=== PATIENT | female | born 1970 | race Caucasian/White ===

== ENCOUNTER 2018-10-11 15:00 | Outpatient (RCR) | payer OTHER, SELFPAY ==
--- NOTE | 2018-08-20 17:58 | HP.PTEVAL ---
Patient's Visit Information CLAUDE PAK is a 48 year old F referred to Physical Therapy by HARVINDER GOTTLIEB with a diagnosis of R hip piriformis syndrome. Date of Evaluation: 08/20/18 Physical Therapist: Valentin Nova PT, - Visit Plan Frequency: 2x /Week Duration: 2-4 Weeks Plan: R LE stretching and strengthening, DTR, foam roller, strengthening, and HEP - Subjective Subjective: Pt reports she has had R gluteal pain since june of 2018. Pt notes she has pain in the right gluteal region, and in her R foot. Pt denies LBP at this time. Pt reports sitting, walking up hills, and squatting all increase her pain. Pt reports she is very active performing in running activity, as well as crossfit. Pt is unable to perform that activity now and would like to get back to them. Pt reports she has been getting adjusted by her chiropractor to help relieve her pain. Pain does awaken her at night time. 6/10 pain at rest, 9/10 at worst. - Pain R glute Pain Intensity (Out of 10): 6 Pain Intensity Range: 9 - Objective Neuro: B LE sensation is WNL to light touch. B patellar tendon reflex= 2/3. Palpation: Pt is very sore in the R gluteal region. ROM: B LE's are WFL. MMT: R hip flex and ER are 4-/5 and very painful with testing. All other 5/5 throughout. special tests: pos piriformis test - Goals Goal 1:: Decrease R hip pain x 50% to aid with sleep Goal Time Frame: 2-4 Weeks Goal 2:: Increase R hip flexibility x 1 grade to aid with decreasing pain Goal Time Frame: 2-4 Weeks Goal 3:: I with HEP Goal Time Frame: 2-4 Weeks - Rehabilitation Potential Physical Therapy Diagnosis: R hip pain, weakness, and limited ability to run secondary to R hip piriformis syndrome Rehabilitation Potential: Good - Anticipated Interventions Patient/Client Instruction: Educate patient on: Condition, Plan of Care For the Purpose of:: To improve self management Therapeutic Exercise to Include: Strength training, Endurance training, Flexibilty training, Dynamic Lumbar Stabilization For the Purpose of:: To decrease pain, To increase ROM, To improve muscle performance and motor function Thank you for the opportunity to evaluate your patient. For Medicare and Medicare HMO plans, please review the plan of care and approve it. It will need to be FAXED BACK to us at [phone] for Medicare purposes. Please let me know if there are questions or concerns regarding this plan of care. Physician Signature: Date:
--- NOTE | 2018-10-11 15:43 | HP.PTDCSUM ---
HP - PT D/C Summary It has been my pleasure to treat CLAUDE PAK under orders from HARVINDER GOTTLIEB, for the diagnosis of R hip piriformis syndrome for a total of 6 visit(s). Discharge Date: Please see the following information for a summary of their discharge status. - Subjective Subjective: No pain this date. Pt reports she is now able to run a mile and is fine - Pain R glute Pain Intensity (Out of 10): 0 - Objective Objective/Function: 0/10 pain this date. R LE flexibility is now WNL throughout. Pt is I with HEP. Rx goals achieved - Goals Goal 1:: Decrease R hip pain x 50% to aid with sleep Goal Progress: Goal Met Goal 2:: Increase R hip flexibility x 1 grade to aid with decreasing pain Goal Progress: Goal Met Goal 3:: I with HEP Goal Progress: Goal Met - Plan Plan: Discharge - D/C Information If there are questions or concerns regarding this patient's physical therapy, please feel free to call me at [phone]. Thank you for the referral of this patient. Sincerely, Valentin Nova, PT, ATC
== END 2018-10-11 19:00 | disposition home or self-care (01) ==
LOC: PT 15:00
DX: M99.01 Segmental and somatic dysfunction of cervical region (principal); M54.2 Cervicalgia; M99.03 Segmental and somatic dysfunction of lumbar region; M99.02 Segmental and somatic dysfunction of thoracic region; M54.5 Low back pain; M54.06 Panniculitis affecting regions of neck and back, lumbar region; M99.05 Segmental and somatic dysfunction of pelvic region; G44.1 Vascular headache, not elsewhere classified
CPT/HCPCS: 97110; 97161; 97530

== ENCOUNTER → 2018-10-18 10:42 | Outpatient (CLI) | payer OTHER, SELFPAY ==
[2017-08-11 14:52] VITALS: BMI 22.3
[2018-10-24 16:44] LABS: HPV Reflexed? NOT INDICATED
--- OUTSIDE RECORDS SUMMARY | 2018-12-23 19:28 | XMS RPT_ITS ---
:1970 Author Organization [facility] Care Team Providers Name Role Phone RICHA DONG (ULTRASOUND APPLICATIONS SPECIALIST) Referring Unavailable Jason Ley Attending Unavailable Jason [...] Unknown M99.01 - DENISSE MAGALLANES Active Sam[facility] dysfunction of Repository cervical region / M99.01(ICD-10) 12/27/2017 Active Unspecified NA Active [facility] ovarian cyst, [facility] left side / Repository N83.202(ICD-10) PROCEDURES PROCEDURES No Procedure Records FoundRESULTS RESULTS CBC W/DIFF, AUTOMATED Collected: 10/18/2018 Status: F Source: [place] 4:03 PM [facility] REPOSITORY TYPE CODE TESTS RESULT OUT OF [...] By: #### L100.0100, L500.4050, L500.4100, L501.9520 #### [facility] [address] [place], [address] COMPREHENSIVE METABOLIC Collected: 10/18/2018 Status: F Source: [facility] 4:03 PM [facility] REPOSITORY TYPE CODE TESTS RESULT OUT OF [...] By: #### L100.0100, L500.4050, L500.4100, L501.9520 #### [facility] [address] [place], [place], [address] LIPID PROFILE Collected: 10/18/2018 Status: F Source: [facility] 4:03 PM [facility] REPOSITORY TYPE CODE TESTS RESULT OUT OF [...] By: #### L100.0100, L500.4050, L500.4100, L501.9520 #### [facility] [address] [place], [place], [address] THYROID STIM HORMONE Collected: 10/18/2018 Status: F Source: [facility] (TSH) 4:03 PM [facility] REPOSITORY TYPE CODE TESTS RESULT OUT OF RANGE REFERENCE UNITS LAB L501.9520 0.358-3.74 uIU/mL Normal TSH 3.03 Performed By: #### L100.0100, L500.4050, L500.4100, L501.9520 #### [facility] [address] [place], [address] PAP I-G W/RFX HRHPV Collected: 10/18/2018 Status: F Source: [facility] 12:00 AM [facility] REPOSITORY Order Comment: CYTOLOGY INFORMATION: - CLINICAL INFORMATION: - DATE LMP/MENOPAUSE: LMP - COLLECTION VIAL: Thin Prep Vial - COATER HAND SOURCE: CERVICAL/ENDOCERVICAL - COLLECTION TECHNIQUE: BRUSH/SPATULA Specimen Comment: [id number] Specimen Comment: Source.............Cervix;Endocervix Specimen Comment: No. of [...] Normal PERFORM Comment Result Comment: Ja Caputo, Pearl Glue Drier (ASCP) LAB L7400.2575 . Normal TEST METHOD [...] no HPV testing was performed. Performed at: [address] [id number] Vacuum Cooker Operator: Aileen Saeed MD, Phone: [phone] Performed By: #### L7400.0350 #### [facility] (refer to report for specific site) refer to report for address and phone number PT D/C SUMMARY (1) Observed: 10/11/2018 Status: F Source: [place] 3:44 PM [facility] REPOSITORY [facility] [place] [address] / REHABILITATION SERVICES DISCHARGE SUMMARY MR#: [id number] Acct: [id number] Name: CLAUDE PAK Rep #: [id number] : 1970 48 From: Valentin Nova PT, ATC Referring DrJohanna: Status: REG RCR Insurance: [facility] PAY INSURANCE [place] - PT D/C Summary [...] please feel free to call me at [phone]. Thank you for the referral of this patient. Sincerely, Valentin Nova PT, ATC <Electronically signed by Valentin Nova PT, ATC> 10/11/18 1544 CC: No Primary Care Physician; PATO GOTTLIEB [facility] Signed INITAL EVALUATION (1) Observed: 08/20/2018 Status: F Source: [facility] - PT 5:58 PM [facility] REPOSITORY [facility] [address] [place] [address] [address] [place], [place] [address] Fax REHABILITATION SERVICES INITIAL EVALUATION MR#: [id number] Acct: [id number] Name: CLAUDE PAK Rep #: [id number] : 1970 48 From: Valentin Nova PT, ATC Referring DrJohanna: Status: REG RCR Insurance: [facility] PAY INSURANCE Patient's Visit Information CLAUDE PAK [...] to be FAXED BACK to us at [phone] for Medicare purposes. Please let me know if there are questions or concerns regarding this plan of care. Physician Signature: Date: <Electronically signed by Valentin Nova PT, ATC> 08/20/18 1758 CC: No Primary Care Physician; PATO GOTTLIEB [facility] Signed For Medicare only, by signing this I certify the plan of care. Physicians Signature Date US FEMALE PELVIS Observed: 12/27/2017 Status: F Source: [place] 10:38 AM [facility] REPOSITORY * * *Final Report* * * [...] noted complex cyst. Continued follow-up is suggested. Skelp Processor: NAVA Transcribe Date/Time: Dec 27 2017 2:20P Dictated by : MEHREEN GAMBINO MD This examination was interpreted and the report reviewed and electronically signed by: MEHREEN GAMBINO MD on Dec 27 2017 2:28PM EST [id number] Observed: 12/27/2017 Status: COMPLETED Source: [place] 10:01 AM [facility] REPOSITORY HNO ID: [id number] Author: Sierra Sharma Rdms Service: (none) Author [...] SEVERITY SOURCE 08/11/2017 Drug No Known Unknown [facility] Allergy/416 Allergies/J75013 Hospital 108940(SNOM 0388(RXNORM) Repository ED CT) Drug NO KNOWN [facility] Class/23733 ALLERGIES [facility] 1003(SNOMED Repository CT) ENCOUNTERS ENCOUNTERS ADMIT/DISCHARGE ACCOUNT ADMITTING ENCOUNTER LOCATION SOURCE NUMBER CLASS 10/18/2018 [id number] [facility] ing:MFPLAB Repository 10/18/2018 [id number] [facility] ing:LABSPEC Repository 10/11/2018/10/11/[id number] ing:PT Repository 12/27/2017/12/28/19 [id number] Ambulatory [address] Repository 11/07/2017 [id number] Ambulatory [facility]i [facility] ing:RAD.MARIA DEL CARMEN Repository E PAYERS PAYERS ENCOUNTER GUARANTOR PAYER SUBSCRIBER SOURCE 10/18/2018 PATO [id number] Primary PATO DANILOONUNK [place] Insurance:[address] [address]Ydo: Number: Repository [id number] (HP) Date:[id number] [address] [address]TY: 10/18/2018 Secondary NOT GIVENUNK Sami Insurance:SELF PAY [facility] Number: Effective Repository Date:2018-10-18 10/18/2018 PATO [id number] Primary PATO DANILOONUNK [facility] TR Insurance:[address] [place] [address]Jro: Number: Repository [id number] (HP) Date:[id number] [address] [address]YE: 10/18/2018 Secondary NOT GIVENUNK [place] Insurance:SELF PAY [facility] Number: Effective Repository Date:2018-10-18 10/11/2018 PATO [id number] Primary PATO DANILOONSHYANN [facility]i TR Insurance:[address] [place] [address]Cuy: Number: Repository [id number] (HP) Date:[id number] [address] [address]GA: 10/11/2018 Secondary NOT GIVENUNK [place] Insurance:SELF PAY [facility] Number: Effective Repository Date:2018-08-10 11/07/2017 Pato [id number] Primary Pato LemonUNK [address] Insurance:[address] [place] [address]Ftx: Number: Repository [id number] (HP) Date:[id number] [address] [address]EL: 11/07/2017 Secondary NOT GIVENUNK [place] Insurance:SELF PAY [facility]: Effective Repository Date:2017-11-07
== END ==
PROVIDERS: Family Provider Family Medicine; PCP Family Medicine; Referring Provider Family Medicine; Visit Provider Family Medicine
DX: Z01.419 Encounter for gynecological examination (general) (routine) without abnormal findings (principal)
CPT/HCPCS: 88175; G0145

== ENCOUNTER → 2018-10-18 16:01 | Outpatient (CLI) | payer OTHER, SELFPAY ==
[2017-08-11 14:52] VITALS: BMI 22.3
[2018-10-18 17:54] LABS: Absolute Lymphocyte Count 2.41 X10^3/ul (0.83-4.51); Absolute Neutrophil Count 4.2 X10^3/uL (2.0-7.7); Basophil# 0.02 X10^3/uL; Basophil% 0.3 % (0-1); Eosinophil# 0.03 X10^3/uL; Eosinophils% 0.4 % (0-5); Hematocrit 39.6 % (37-47); Hemoglobin 13.2 g/dl (12.0-15.0); Lymphocyte # 2.41 X10^3/ul (4.0); Lymphocyte % 32.3 % (19-41); Mean Corp Hgb Conc 33.3 g/gl (32-36); Mean Corpuscular Hgb 31.4 pg (27.0-32.0); Mean Corpuscular Volume 94.1 fL (81-99); Mean Platelet Vol. 11.6 fl (6.2-12.0); Monocyte# 0.75 X10^3/uL; Monocyte% 10.1 % (0-10); Neutrophil # 4.22 X10^3/uL (2.7-7.7); Neutrophil % 56.6 % (47-70); Platelet Count 244 K/mm3 (150-450); RBC Distribution Width SD 43.5 fl (35.1-43.9); Red Blood Count 4.21 M/mm3 (4.2-5.4); White Blood Count 7.5 K/mm3 (4.4-11.0)
[2018-10-18 17:55] LABS: POSITIVE COUNT NO; POSITIVE DIFFERENTIAL NO; POSITIVE MORPHOLOGY NO
[2018-10-18 18:24] LABS: ALB/GLOB Ratio 1.1 RATIO (0.9-2.4); AST(SGOT) 23 U/L (15-37); Alanine Aminotransfer ALT/SGPT 35 U/L (13-56); Albumin, Serum 3.8 g/dL (3.2-5.0); Alkaline Phosphatase 67 U/L (45-117); Anion Gap 6 (5-15); BUN 17 mg/dL (7-18); BUN/Creat Ratio 24.4 RATIO (10-20); Calcium,Total 8.6 mg/dL (8.5-10.1); Chloride 106 mmol/L (98-107); Cholesterol 123 mg/dL (200); EST Glomerular Filtration Rate 96 mL/min (>60); Est Glom Filt Rate - Afr Amer 116 mL/min (>60); Globulin 3.4 g/dL (2.2-4.2); Glucose 79 mg/dL (74-106); High Density Lipoprotein 61 mg/dL; Potassium 3.7 mmol/L (3.5-5.1); Protein, Total 7.2 g/dL (6.4-8.2); Sodium Level 142 mmol/L (136-145); Thyroid Stim Hormone (TSH) 3.03 uIU/mL (0.358-3.74); Triglycerides 70 mg/dL; Very Low Density Lipoprotein 14 mg/dL (5-40)
--- OUTSIDE RECORDS SUMMARY | 2018-12-23 11:34 | XMS RPT_ITS ---
:1970 Author Organization [facility] Care Team Providers Name Role Phone RICHA DONG (BURNER MACHINE OPERATOR) Referring Unavailable Jason Ley Attending Unavailable Jason Ley Primary Care Unavailable Jason Ley Attending Unavailable Jason Ley Referring Unavailable Jason Ley Primary Care Unavailable Rivera Medel Attending Unavailable Primay Care Physicia, No Primary Care Unavailable DENISSE MAGALLANES Attending Unavailable Primay Care Physicia, No Primary Care Unavailable DENISSE MAGALLANES Consulting Unavailable DENISSE MAGALLANES Referring Unavailable PROBLEMS PROBLEMS DATE TYPE CONDITION / CODE ATTENDING STATUS SOURCE 10/12/2018 Unknown M99.01 - DENISSE MAGALLANES Active [facility] dysfunction of Repository cervical region / M99.01(ICD-10) 12/27/2017 Active Unspecified NA Active [facility] ovarian cyst, [facility] left side / Repository N83.202(ICD-10) PROCEDURES PROCEDURES No Procedure Records FoundRESULTS RESULTS CBC W/DIFF, AUTOMATED Collected: 10/18/2018 Status: F Source: [place] 4:03 PM [facility] REPOSITORY TYPE CODE TESTS RESULT OUT OF RANGE REFERENCE UNITS LAB L100.1000 4.4-11.0 K/mm3 Normal WBC 7.5 LAB L100.1200 4.2-5.4 M/mm3 Normal RBC 4.21 LAB L100.1300 12.0-15.0 g/dl Normal HGB 13.2 LAB L100.1400 37-47 % Normal HCT 39.6 LAB L100.1500 81-99 fL Normal MCV 94.1 LAB L100.1600 27.0-32.0 pg Normal MCH 31.4 LAB L100.1700 32-36 g/gl Normal MCHC 33.3 LAB L100.1810 11.6-14.6 % Normal RDW CV 13.0 LAB L100.1820 35.1-43.9 fl Normal RDW SD 43.5 LAB L100.1900 150-450 K/mm3 Normal PLT 244 LAB L100.2000 6.2-12.0 fl Normal MPV 11.6 LAB L100.2100 47-70 % Normal NEUT% 56.6 LAB L100.2200 19-41 % Normal LY% 32.3 LAB L100.2300 0-10 % High MONO% 10.1 LAB L100.2400 0-5 % Normal EO% 0.4 LAB L100.2500 0-1 % Normal BASO% 0.3 LAB L100.2550 0.0-0.9 % Normal IM GRAN % 0.300 Result Comment: IG% - Immature Granulocytes (promyelocytes, myelocytes and metamyelocytes) > 1% indicates that a LEFT SHIFT is Present. LAB L100.2620 2.0-7.7 X10 3/uL Normal Absolute Neut 4.2 LAB L100.2720 0.83-4.51 X10 3/ul Normal Absolute Lymph 2.41 Performed By: #### L100.0100, L500.4050, L500.4100, L501.9520 #### [facility] Laboratory [address] [place], [address] COMPREHENSIVE METABOLIC Collected: 10/18/2018 Status: F Source: [place] 4:03 PM [facility] REPOSITORY TYPE CODE TESTS RESULT OUT OF RANGE REFERENCE UNITS LAB L501.0100 74-106 mg/dL Normal GLU 79 Result Comment: Please note revised GLUCOSE reference range effective 2017. LAB L501.1000 7-18 mg/dL Normal BUN 17 LAB L501.1100 0.55-1.02 mg/dL Normal CREAT,SERUM 0.70 Result Comment: The validity of the calculated GFR AND GFRAA in patients over 70 years has not been determined. Clinical correlation is essential. LAB L501.1110 >60 mL/min Normal EST GFR 96 Result Comment: Non- GFR Calc LAB L501.1115 >60 mL/min Normal EST GFR - AA 116 Result Comment: GFR Calc LAB L501.1300 10-20 RATIO High BUN/CRE 24.4 LAB L501.1500 6.4-8.2 g/dL T Normal PROT 7.2 LAB L501.1800 3.2-5.0 g/dL Normal ALB 3.8 LAB L501.1950 2.2-4.2 g/dL Normal GLOB 3.4 LAB L501.2000 0.9-2.4 RATIO Normal A/G 1.1 LAB L501.2200 8.5-10.1 mg/dL CA Normal 8.6 LAB L501.4100 15-37 U/L Normal AST 23 LAB L501.4305 45-117 U/L Normal ALK P 67 LAB L501.4405 13-56 U/L Normal ALT 35 LAB L501.4600 0.20-1.00 mg/dL T Normal BILI 0.30 LAB L501.5300 136-145 mmol/L NA Normal 142 LAB L501.5600 3.5-5.1 mmol/L K Normal 3.7 LAB L501.5900 98-107 mmol/L CL Normal 106 LAB L501.6100 21.0-32.0 mmol/L Normal CO2 30.0 LAB L501.6200 5-15 Normal GAP 6 Performed By: #### L100.0100, L500.4050, L500.4100, L501.9520 #### [facility] Laboratory [address] [place], [place], [address] LIPID PROFILE Collected: 10/18/2018 Status: F Source: [place] 4:03 PM [facility] REPOSITORY TYPE CODE TESTS RESULT OUT OF RANGE REFERENCE UNITS LAB L501.4900 200 mg/dL Normal CHOL 123 Result Comment: <200 mg/dL Desirable 200-240 mg/dL Borderline >240 mg/dL High Risk LAB L501.5000 mg/dL Normal TRIG 70 Result Comment: The drugs N-Acetylcysteine and Metamizole may falsely depress this assay. Serum Triglycerides Reference Interval Normal <150 mg/dL Borderline high 150 - 199 mg/dL High 200 - 499 mg/dL Very High > or = 500 mg/dL LAB L501.6400 mg/dL Normal HDL 61 Result Comment: The drugs N-Acetylcysteine and Metamizole may falsely depress this assay. Reference Range HDL <40 mg/dL Low HDL Cholesterol HDL >or= 60 mg/dL High HDL Cholesterol LAB L501.6500 0-130 mg/dL Normal LDL 48 LAB L501.6600 5-40 mg/dL Normal VLDL 14 Performed By: #### L100.0100, L500.4050, L500.4100, L501.9520 #### [facility] Laboratory [address] [place], [place], [address] THYROID STIM HORMONE Collected: 10/18/2018 Status: F Source: [place] (TSH) 4:03 PM [facility] REPOSITORY TYPE CODE TESTS RESULT OUT OF RANGE REFERENCE UNITS LAB L501.9520 0.358-3.74 uIU/mL Normal TSH 3.03 Performed By: #### L100.0100, L500.4050, L500.4100, L501.9520 #### [facility] Laboratory [address] [place], [address] PAP I-G W/RFX HRHPV Collected: 10/18/2018 Status: F Source: [place] 12:00 AM [facility] REPOSITORY Order Comment: CYTOLOGY INFORMATION: - CLINICAL INFORMATION: - DATE LMP/MENOPAUSE: LMP - COLLECTION VIAL: Thin Prep Vial - CARPET WEAVER SOURCE: CERVICAL/ENDOCERVICAL - COLLECTION TECHNIQUE: BRUSH/SPATULA Specimen Comment: [id number] Specimen Comment: Source.............Cervix;Endocervix Specimen Comment: No. of containers..01 ThinPrep Vial TYPE CODE TESTS RESULT OUT OF RANGE REFERENCE UNITS LAB L7400.0800 . Normal DIAGN Comment Result Comment: NEGATIVE FOR INTRAEPITHELIAL LESION OR MALIGNANCY. FUNGAL ORGANISMS MORPHOLOGICALLY CONSISTENT WITH APRIL SPECIES ARE PRESENT. LAB L7400.0900 . Normal ADEQ Comment Result Comment: Satisfactory for evaluation. Endocervical and/or squamous metaplastic cells (endocervical component) are present. LAB L7400.1400 . Normal PERFORM Comment Result Comment: Ja Caputo, [employer] Faculty Member (ASCP) LAB L7400.2575 . Normal TEST METHOD Comment Result Comment: This liquid based ThinPrep(R) pap test was screened with the use of an image guided system. LAB L7400.2600 . Normal . COMM LAB L7400.2700 . Normal PAPSMR Comment Result Comment: The Pap smear is a screening test designed to aid in the detection of premalignant and malignant conditions of the uterine cervix. It is not a diagnostic procedure and should not be used as the sole means of detecting cervical cancer. Both false-positive and false-negative reports do occur. LAB L7400.2800 . Normal HPV RFLX Comment Result Comment: The HPV DNA reflex criteria were not met with this specimen result therefore, no HPV testing was performed. Performed at: [address] [id number] Senior Officer: Aileen Saeed MD, Phone: [phone] Performed By: #### L7400.0350 #### [facility] (refer to report for specific site) refer to report for address and phone number PT D/C SUMMARY (1) Observed: 10/11/2018 Status: F Source: [place] 3:44 PM [facility] REPOSITORY [facility] Physical Therapy [address] [place] [address] / REHABILITATION SERVICES DISCHARGE SUMMARY MR#: [id number] Acct: [id number] Name: CLAUDE PAK Rep #: [id number] : 1970 48 From: Valentin Nova PT, ATC Referring DrJohanna: Status: REG RCR Insurance: [facility] PAY INSURANCE HP - PT D/C Summary It has been my pleasure to treat CLAUDE PAK under orders from PATO GOTTLIEB, for the diagnosis of R hip piriformis syndrome for a total of 6 visit(s). Discharge Date: Please see the following information for a summary of their discharge status. - Subjective Subjective: No pain this date. Pt reports she is now able to run a mile and is fine - Pain R glute Pain Intensity (Out of 10): 0 - Objective Objective/Function: 0/10 pain this date. R LE flexibility is now WNL throughout. Pt is I with HEP. Rx goals achieved - Goals Goal 1:: Decrease R hip pain x 50% to aid with sleep Goal Progress: Goal Met Goal 2:: Increase R hip flexibility x 1 grade to aid with decreasing pain Goal Progress: Goal Met Goal 3:: I with HEP Goal Progress: Goal Met - Plan Plan: Discharge - D/C Information If there are questions or concerns regarding this patient's physical therapy, please feel free to call me at [phone]. Thank you for the referral of this patient. Sincerely, Valentin Nova PT, ATC <Electronically signed by Valentin Nova PT, ATC> 10/11/18 1544 CC: No Primary Care Physician; PATO GOTTLIEB [facility] Signed INITAL EVALUATION (1) Observed: 08/20/2018 Status: F Source: [place] - PT 5:58 PM [facility] REPOSITORY [facility] Physical Therapy [facility] [address] [place] [address] [address] [place], [place] [address] Fax REHABILITATION SERVICES INITIAL EVALUATION MR#: [id number] Acct: [id number] Name: CLAUDE PAK Rep #: [id number] : 1970 48 From: Valentin Nova PT, ATC Referring DrJohanna: Status: REG RCR Insurance: [facility] PAY INSURANCE Patient's Visit Information CLAUDE PAK is a 48 year old F referred to Physical Therapy by PATO GOTTLIEB with a diagnosis of R hip piriformis syndrome. Date of Evaluation: 08/20/18 Physical Therapist: Valentin M Hartzler, PT, - Visit Plan Frequency: 2x /Week Duration: 2-4 Weeks Plan: R LE stretching and strengthening, DTR, foam roller, strengthening, and HEP - Subjective Subjective: Pt reports she has had R gluteal pain since june of 2018. Pt notes she has pain in the right gluteal region, and in her R foot. Pt denies LBP at this time. Pt reports sitting, walking up hills, and squatting all increase her pain. Pt reports she is very active performing in running activity, as well as crossfit. Pt is unable to perform that activity now and would like to get back to them. Pt reports she has been getting adjusted by her chiropractor to help relieve her pain. Pain does awaken her at night time. 6/10 pain at rest, 9/10 at worst. - Pain R glute Pain Intensity (Out of 10): 6 Pain Intensity Range: 9 - Objective Neuro: B LE sensation is WNL to light touch. B patellar tendon reflex= 2/3. Palpation: Pt is very sore in the R gluteal region. ROM: B LE's are WFL. MMT: R hip flex and ER are 4-/5 and very painful with testing. All other 5/5 throughout. special tests: pos piriformis test - Goals Goal 1:: Decrease R hip pain x 50% to aid with sleep Goal Time Frame: 2-4 Weeks Goal 2:: Increase R hip flexibility x 1 grade to aid with decreasing pain Goal Time Frame: 2-4 Weeks Goal 3:: I with HEP Goal Time Frame: 2-4 Weeks - Rehabilitation Potential Physical Therapy Diagnosis: R hip pain, weakness, and limited ability to run secondary to R hip piriformis syndrome Rehabilitation Potential: Good - Anticipated Interventions Patient/Client Instruction: Educate patient on: Condition, Plan of Care For the Purpose of:: To improve self management Therapeutic Exercise to Include: Strength training, Endurance training, Flexibilty training, Dynamic Lumbar Stabilization For the Purpose of:: To decrease pain, To increase ROM, To improve muscle performance and motor function Thank you for the opportunity to evaluate your patient. For Medicare and Medicare HMO plans, please review the plan of care and approve it. It will need to be FAXED BACK to us at [phone] for Medicare purposes. Please let me know if there are questions or concerns regarding this plan of care. Physician Signature: Date: <Electronically signed by Valentin Nova PT, ATC> 08/20/18 1758 CC: No Primary Care Physician; PATO GOTTLIEB [facility] Signed For Medicare only, by signing this I certify the plan of care. Physicians Signature Date US FEMALE PELVIS Observed: 12/27/2017 Status: F Source: [place] TRANSVAG 10:38 AM [facility] REPOSITORY * * *Final Report* * * DATE OF EXAM: Dec 27 2017 10:38AM [facility] 1060 - US FEMALE PELVIS TRANSVAG / PROCEDURE REASON: Unspecified ovarian cyst, left side * * * * Physician Interpretation * * * * US FEMALE PELVIS TRANSVAG HISTORY: Follow up left ovarian cyst. Menstrual status: LMP 07/2017 COMPARISON: Ultrasound pelvis on 08/17/2017. TECHNIQUE: Sonography of the pelvis was performed by transabdominal and transvaginal techniques. Color flow and spectral Doppler imaging of the ovarian vasculature was performed. Images were obtained and stored in a permanent archive. RESULT: Uterus: -Size: 7.8 x 3.9 x 4.2 cm. -Myometrium: Unremarkable. -Endometrial echo complex: 5 mm. -Cervix: Multiple nabothian cysts identified measuring up to 7 mm. Right ovary: -Size: 2.6 x 1.5 x 1.9 cm. -Complex cyst: None. -Solid mass: None. -Doppler evaluation: Arterial and venous flow with normal spectral waveforms present. Left ovary: -Size: 3.3 x 1.7 x 2.7 cm. -Complex cyst: There is a 1.3 x 0.9 x 1.2 centimeter complex cyst with an area of increased echogenicity. No other cysts seen. -Solid mass: None. -Doppler evaluation: Arterial and venous flow with normal spectral waveforms present. Free fluid: No significant free fluid in the cul-de-sac. IMPRESSION: 1.3 cm left ovarian complex cyst with an area of increased echogenicity; unsure if this represents previously noted complex cyst. Continued follow-up is suggested. Corn Grinder: NAVA Transcribe Date/Time: Dec 27 2017 2:20P Dictated by : MEHREEN GAMBINO MD This examination was interpreted and the report reviewed and electronically signed by: MEHREEN GAMBINO MD on Dec 27 2017 2:28PM EST [id number] Observed: 12/27/2017 Status: COMPLETED Source: [place] 10:01 AM [facility] REPOSITORY HNO ID: [id number] Author: Sierra Sharma Rdms Service: (none) Author Type: (none) Type: Progress Notes Filed: 12/27/2017 10:47 AM Note Text: Radiology Service Progress Note PATIENT NAME: Claude Pak DATE OF SERVICE: December 27, 2017 TIME: 10:01 AM PATIENT IDENTITY VERIFICATION COMPLETED USING TWO (2) METHODS: Patient confirmed name verbally and Date of . PATIENT GENDER DATA: Female. status: : No status: NO. PATIENT RELEVANT IMPLANT DATA REVIEWED: Not Applicable RADIOLOGY DEPARTMENT: Ultrasound PERIPHERAL IV DATA: Not applicable SIGNED BY: Sierra Sharma Rdms December 27, 2017 10:01 AM ALLERGIES ALLERGIES DATE TYPE / CODE NAME / CODE REACTION SEVERITY SOURCE 08/11/2017 Drug No Known Unknown [facility] Allergy/416 Allergies/W96272 Hospital 748132(SNOM 0388(RXNORM) Repository ED CT) Drug NO KNOWN [facility] Class/89223 ALLERGIES [facility] 1003(SNOMED Repository CT) ENCOUNTERS ENCOUNTERS ADMIT/DISCHARGE ACCOUNT ADMITTING ENCOUNTER LOCATION SOURCE NUMBER CLASS 10/18/2018 [id number] [facility] ing:MFPLAB Repository 10/18/2018 [id number] [facility] ing:LABSPEC Repository 10/11/2018/10/11/[id number] ing:PT Repository 12/27/2017/12/28/19 [id number] Ambulatory [address] Repository 11/07/2017 [id number] Ambulatory [facility] ing:RAD.MARIA DEL CARMEN Repository E PAYERS PAYERS ENCOUNTER GUARANTOR PAYER SUBSCRIBER SOURCE 10/18/2018 PATO [id number] Primary PATO DANILOONUNK [place] Insurance:[address] [address]Mhp: Number: Repository [id number] (HP) Date:[id number] [address] [address]SH: 10/18/2018 Secondary NOT GIVENUNK [facility] Insurance:SELF PAY [facility] Number: Effective Repository Date:2018-10-18 10/18/2018 PATO [id number] Primary PATO DANILOONUNK [place] TR Insurance:[address] [place] [address]Yjw: Number: Repository [id number] (HP) Date:[id number] [address] [address]HH: 10/18/2018 Secondary NOT GIVENUNK [place] Insurance:SELF PAY [facility] Number: Effective Repository Date:2018-10-18 10/11/2018 PATO [id number] Primary PATO DANILOONSHYANN [place] TR Insurance:[address] [place] [address]Ftf: Number: Repository [id number] (HP) Date:[id number] [address] [address]NG: 10/11/2018 Secondary NOT GIVENUNK [place] Insurance:SELF PAY [facility] Number: Effective Repository Date:2018-08-10 11/07/2017 Pato [id number] Primary Pato LemonUNK [place] [address] Insurance:[address] [place] [address]Eca: Number: Repository [id number] (HP) Date:[id number] [address] [address]DK: 11/07/2017 Secondary NOT GIVENUNK [place] Insurance:SELF PAY [facility]: Effective Repository Date:2017-11-07
== END ==
PROVIDERS: Family Provider Family Medicine; PCP Family Medicine; Visit Provider Family Medicine
DX: Z01.419 Encounter for gynecological examination (general) (routine) without abnormal findings (principal)
CPT/HCPCS: 36415; 80053; 80061; 84443; 85025

== ENCOUNTER → 2019-03-22 14:24 | Outpatient (CLI) | payer OTHER, SELFPAY ==
--- NOTE | 2019-03-22 14:29 | BI_ITS ---
MAMMOGRAPHY - BILATERAL SCREENING 3-D TOMOSYNTHESIS REASON FOR EXAM: Female, 48 years old. Bilateral Screening 3-D tomosynthesis PERTINENT HISTORY: No significant family history. TECHNIQUE: 2-D mammograms and 3-D Tomosynthesis of the breast (s) were performed. CAD was performed. COMPARISON: None. FINDINGS: The breast composition is scattered fibroglandular tissue No dense spiculated masses or suspicious microcalcifications are identified. No architectural distortion is identified. There is no skin thickening or retraction. BI/SCREEN MAMM (CAD) W/LEA BILAT IMPRESSION: No mammographic signs of malignancy. Routine yearly mammograms recommended. ASSESSMENT CATEGORY: BIRADS Category 1: Negative. A letter regarding these results will be sent to the patient by the facility within 30 days. FOLLOW UP RECOMMENDATION: Yearly follow up mammogram recommended. (A) Approximately 10% of breast cancers are not detected by mammography. A normal mammogram should not delay biopsy of a clinically suspicious abnormality. Electronically Signed: Janessa Baker, at 15:21 EDT Tel , Service support ,
== END ==
PROVIDERS: Family Provider Family Medicine; PCP Family Medicine; Referring Provider Family Medicine; Visit Provider Family Medicine
DX: Z12.31 Encounter for screening mammogram for malignant neoplasm of breast (principal)
CPT/HCPCS: 77063; 77067

== ENCOUNTER → 2020-04-08 15:34 | Outpatient (CLI) | payer OTHER, SELFPAY ==
--- NOTE | 2020-04-08 15:37 | BI_ITS ---
MAMMOGRAPHY - BILATERAL SCREENING REASON FOR EXAM: Female, 49 years old. Routine annual screening examination. PERTINENT HISTORY: Non-contributory. Occasional left breast tenderness. TECHNIQUE: Digital bilateral breast lea (3D mammographic acquisition) in the CC and MLO projections. 2-D mediolateral oblique (MLO) and craniocaudad (CC) views of both breasts were obtained. CAD: Full Field Digital Mammography with Computer Added Detection was performed. COMPARISON: Comparison is made with prior study dated March 22, 2019. FINDINGS: Breast Composition: There are scattered areas of fibroglandular density. There are no dominant masses or suspicious calcifications. No other significant abnormalities are identified. There has been no significant change since the prior study. BI/SCREEN MAMM (CAD) W/LEA BILAT IMPRESSION: Stable bilateral screening mammogram. Yearly follow-up mammogram recommended. (A) ASSESSMENT CATEGORY: BIRADS Category 1: Negative. A letter regarding these results will be sent to the patient by the facility within 30 days. Approximately 10% of breast cancers are not detected by mammography. A normal mammogram should not delay biopsy of a clinically suspicious abnormality. [id number] Electronically Signed: Mohsen Stallworth, at 8:41 EDT , Service support ,
== END ==
PROVIDERS: PCP Family Medicine; Referring Provider Family Medicine; Visit Provider Family Medicine
DX: Z12.31 Encounter for screening mammogram for malignant neoplasm of breast (principal)
CPT/HCPCS: 77063; 77067

== ENCOUNTER → 2020-11-19 15:16 | Outpatient (CLI) | payer OTHER, SELFPAY ==
[2017-08-11 14:52] VITALS: BMI 22.3
[2020-11-19 17:50] LABS: Absolute Lymphocyte Count 1.71 X10^3/uL (0.83-4.51); Absolute Neutrophil Count 2.3 X10^3/uL (2.0-7.7); Basophil# 0.03 X10^3/uL; Basophil% 0.7 % (0-1); Eosinophil# 0.03 X10^3/uL; Eosinophils% 0.7 % (0-5); Hematocrit 38.1 % (37-47); Hemoglobin 12.2 g/dL (12.0-15.0); Lymphocyte # 1.71 X10^3/ul (4.0); Lymphocyte % 37.8 % (19-41); Mean Corpuscular Hgb 30.3 pg (27.0-32.0); Mean Corpuscular Volume 94.5 fL (81-99); Mean Platelet Vol. 11.7 fl (6.2-12.0); Monocyte# 0.44 X10^3/uL; Monocyte% 9.7 % (0-10); NRBC Flagged by Analyzer 0 % (0-5); Neutrophil % 50.9 % (47-70); Platelet Count 205 K/mm3 (150-450); RBC Distribution Width CV 14.7 % (11.6-14.6); RBC Distribution Width SD 51.4 fl (35.1-43.9); Red Blood Count 4.03 M/mm3 (4.2-5.4); White Blood Count 4.5 K/mm3 (4.4-11.0)
[2020-11-19 18:26] LABS: AST(SGOT) 29 U/L (15-37); Alanine Aminotransfer ALT/SGPT 40 U/L (13-56); Albumin, Serum 3.6 g/dL (3.2-5.0); Alkaline Phosphatase 62 U/L (45-117); Anion Gap 5 (5-15); BUN 18 mg/dL (7-18); BUN/Creat Ratio 22.6 RATIO (10-20); Calcium,Total 8.6 mg/dL (8.5-10.1); Chloride 106 mmol/L (98-107); Cholesterol 135 mg/dL (200); EST Glomerular Filtration Rate 82 mL/min (>60); Est Glom Filt Rate - Afr Amer 99 mL/min (>60); Globulin 3.5 g/dL (2.2-4.2); Glucose 64 mg/dL (74-106); High Density Lipoprotein 78 mg/dL; Potassium 3.6 mmol/L (3.5-5.1); Protein, Total 7.1 g/dL (6.4-8.2); Sodium Level 141 mmol/L (136-145); Thyroid Stim Hormone (TSH) 2.46 uIU/mL (0.358-3.74); Triglycerides 41 mg/dL; Very Low Density Lipoprotein 8 mg/dL (5-40)
== END ==
PROVIDERS: PCP Family Medicine; Referring Provider Family Medicine; Visit Provider Family Medicine
DX: Z00.00 Encounter for general adult medical examination without abnormal findings (principal)
CPT/HCPCS: 36415; 80053; 80061; 84443; 85025

== ENCOUNTER → 2021-04-09 13:17 | Outpatient (CLI) | payer OTHER, SELFPAY ==
--- NOTE | 2021-04-09 13:18 | BI_ITS ---
MAMMOGRAPHY - BILATERAL SCREENING REASON FOR EXAM: Female, 50 years old. Routine annual screening examination. PERTINENT HISTORY: Non-contributory. TECHNIQUE: Digital bilateral breast lea (3D mammographic acquisition) in the CC and MLO projections. 2-D mediolateral oblique (MLO) and craniocaudad (CC) views of both breasts were obtained. CAD: Full Field Digital Mammography with Computer Added Detection was performed. COMPARISON: Comparison is made with prior study dated 04/08/2020 and 03/22/2019. FINDINGS: Breast Composition: There are scattered areas of fibroglandular density. There are no dominant masses or suspicious calcifications. Stable decreased size of the right breast as compared to the left. No other significant abnormalities are identified. There has been no significant change since the prior study. BI/SCRN MAMM (CAD)W/LEA BILAT IMPRESSION: Stable bilateral screening mammogram. Yearly follow-up mammogram recommended. (A) ASSESSMENT CATEGORY: BIRADS Category 2: Benign. A letter regarding these results will be sent to the patient by the facility within 30 days. Approximately 10% of breast cancers are not detected by mammography. A normal mammogram should not delay biopsy of a clinically suspicious abnormality. [id number] Electronically Signed: Mohsen Stallworth MD at 14:26 EDT , Service support ,
== END ==
PROVIDERS: PCP Family Medicine; Referring Provider Family Medicine; Visit Provider Family Medicine
DX: Z12.31 Encounter for screening mammogram for malignant neoplasm of breast (principal)
CPT/HCPCS: 77063; 77067

== ENCOUNTER 2022-01-10 14:59 | Outpatient (CLI) | payer OTHER, SELFPAY ==
[2022-01-19 10:23] LABS: HPV APTIMA, High Risk Negative (Negative)
[2022-01-19 10:24] LABS: HPV Reflexed? YES, CHARGE PATIENT
== END 2022-01-10 23:59 | disposition home or self-care (01) ==
LOC: OPBI 15:03
PROVIDERS: PCP Family Medicine; Visit Provider Nurse Practitioner Family
DX: Z12.4 Encounter for screening for malignant neoplasm of cervix (principal)
CPT/HCPCS: 87624; 88175; G0145

== ENCOUNTER → 2022-04-11 | Outpatient (CLI) | payer OTHER, SELFPAY ==
--- NOTE | 2022-04-11 10:08 | BI_ITS ---
MAMMOGRAPHY - BILATERAL SCREENING REASON FOR EXAM: Female, 51 years old. Routine annual screening examination. PERTINENT HISTORY: Non-contributory. TECHNIQUE: Digital bilateral breast lea (3D mammographic acquisition) in the CC and MLO projections. 2-D mediolateral oblique (MLO) and craniocaudad (CC) views of both breasts were obtained. CAD: Full Field Digital Mammography with Computer Added Detection was performed. COMPARISON: Comparison is made with prior study dated 04/09/2021 and 04/08/2020. FINDINGS: Breast Composition: There are scattered areas of fibroglandular density. There are no dominant masses or suspicious calcifications. Stable appearance of the right breast where the right breast is smaller than the left. No other significant abnormalities are identified. There has been no significant change since the prior study. BI/SCRN MAMM (CAD)W/LEA BILAT IMPRESSION: Stable bilateral screening mammogram. Yearly follow-up mammogram recommended. (A) ASSESSMENT CATEGORY: BIRADS Category 2: Benign. A letter regarding these results will be sent to the patient by the facility within 30 days. Approximately 10% of breast cancers are not detected by mammography. A normal mammogram should not delay biopsy of a clinically suspicious abnormality. [id number] Electronically Signed: Mohsen Stallworth MD at 11:15 EDT ,
== END | disposition home or self-care (01) ==
LOC: OPBI 10:06
PROVIDERS: PCP Family Medicine; Visit Provider Nurse Practitioner Family
DX: Z12.31 Encounter for screening mammogram for malignant neoplasm of breast (principal)
CPT/HCPCS: 77063; 77067

== ENCOUNTER → 2022-06-02 | Outpatient (CLI) | payer OTHER, SELFPAY ==
--- NOTE | 2022-06-02 17:02 | RAD_ITS ---
STUDY: X-RAY - RIGHT ANKLE REASON FOR EXAM: Female, 52 years old. Pain in the anterior boles. TECHNIQUE: 3 view(s) of the ankle. COMPARISON: None. FINDINGS: Normal visualized distal tibia and fibula. Normal medial and lateral malleoli. Normal tibiotalar articulation and ankle mortise. Normal visualized talus and calcaneus. The visualized subtalar, talonavicular, calcaneocuboid and tarsal articulations are normal. The soft tissue structures are unremarkable. RAD/Ankle min 3 Views IMPRESSION: Normal x-ray examination of the ankle. Electronically Signed: Dhaval Cabrera DO at 17:39 EDT ,
== END | disposition home or self-care (01) ==
LOC: MTRAD 17:02
PROVIDERS: PCP Family Medicine; Referring Provider Family Medicine; Visit Provider Family Medicine
DX: S86.891A Other injury of other muscle(s) and tendon(s) at lower leg level, right leg, initial encounter (principal)
CPT/HCPCS: 73610

== ENCOUNTER → 2022-12-06 | Outpatient (CLI) | payer OTHER, SELFPAY ==
[2022-12-06 15:21] LABS: Hematocrit 42.1 % (37-47); Hemoglobin 13.4 g/dL (12.0-15.0); Mean Corp Hgb Conc 31.8 g/dL (32-36); Mean Corpuscular Hgb 30.3 pg (27.0-32.0); Mean Corpuscular Volume 95.2 fL (81-99); Mean Platelet Vol. 10.7 fl (6.2-12.0); Platelet Count 224 K/mm3 (150-450); RBC Distribution Width CV 14.5 % (11.6-14.6); RBC Distribution Width SD 50.5 fl (35.1-43.9); Red Blood Count 4.42 M/mm3 (4.2-5.4); White Blood Count 5.9 K/mm3 (4.4-11.0)
[2022-12-06 15:36] LABS: ALB/GLOB Ratio 1.1 RATIO (0.9-2.4); AST(SGOT) 39 U/L (15-37); Alanine Aminotransfer ALT/SGPT 41 U/L (13-56); Alkaline Phosphatase 49 U/L (45-117); Amylase 95 U/L (25-115); Anion Gap 6 (5-15); BUN 16 mg/dL (7-18); BUN/Creat Ratio 22.7 RATIO (10-20); Calcium,Total 9.4 mg/dL (8.5-10.1); Chloride 105 mmol/L (98-107); EST Glomerular Filtration Rate 93 mL/min (>60); Est Glom Filt Rate - Afr Amer 113 mL/min (>60); Globulin 3.5 g/dL (2.2-4.2); Glucose 75 mg/dL (74-106); Lipase 305 U/L (73-393); Potassium 3.7 mmol/L (3.5-5.1); Protein, Total 7.5 g/dL (6.4-8.2); Sodium Level 141 mmol/L (136-145)
== END | disposition home or self-care (01) ==
LOC: MFPLAB 12:33
PROVIDERS: PCP Family Medicine; Visit Provider Nurse Practitioner Family
DX: R11.0 Nausea (principal)
CPT/HCPCS: 36415; 80053; 82150; 83690; 85027

== ENCOUNTER → 2022-12-14 | Outpatient (CLI) | payer OTHER, SELFPAY ==
--- NOTE | 2022-12-14 07:46 | CT_ITS ---
STUDY: CT ABDOMEN AND PELVIS WITH CONTRAST REASON FOR EXAM: Female, 52 years old. Abdominal pain, nausea RADIATION DOSAGE (If Supplied By Facility): CTDIvol = ( 13.23 ) mGy, DLP = ( 240.49 ) mGy TECHNIQUE: Transaxial images were obtained from the dome of the diaphragm to the symphysis pubis with oral contrast. Oral and amp; amp; IV Redi-CAT and amp;amp; 100mL Isovue-300 was administered. Sagittal and coronal images were reconstructed. Individualized dose optimization techniques were used for this CT. COMPARISON: None. FINDINGS: The visualized lung bases are unremarkable. The visualized portions of the heart are within normal limits. Normal liver. Normal gallbladder and extrahepatic biliary system. Normal spleen. Normal pancreas. Normal bilateral adrenal glands. Normal right kidney. Normal left kidney. Normal visualized stomach. Normal small intestine. Retained stool noted throughout the colon. There is non-visualization of the appendix. Normal abdominal aorta. Normal inferior vena cava. Normal retroperitoneum. Normal urinary bladder. Normal abdominal wall. Normal osseous structures except for degenerative narrowing at L5/S1. CT/Abdomen/Pelvis W IV Cont ONLY IMPRESSION: No suspicious solid organ abnormality No free intraperitoneal fluid, air, or suspicious adenopathy Retained stool noted throughout the colon Degenerative bony changes at L5/S1 Electronically Signed: Joselo Reyez MD at 9:44 EDT ,
== END | disposition home or self-care (01) ==
PROVIDERS: PCP Family Medicine; Visit Provider Nurse Practitioner Family
DX: K57.92 Diverticulitis of intestine, part unspecified, without perforation or abscess without bleeding (principal)
CPT/HCPCS: 74177; Q9967

== ENCOUNTER → 2022-12-19 | Outpatient (CLI) | payer OTHER, SELFPAY ==
[2022-12-19 10:39] LABS: ALB/GLOB Ratio 1.2 RATIO (0.9-2.4); AST(SGOT) 38 U/L (15-37); Alanine Aminotransfer ALT/SGPT 53 U/L (13-56); Albumin, Serum 3.8 g/dL (3.2-5.0); Alkaline Phosphatase 55 U/L (45-117); Anion Gap 5 (5-15); BUN 20 mg/dL (7-18); BUN/Creat Ratio 27.7 RATIO (10-20); CRP < 2.90 mg/L (0.0-3.0); Calcium,Total 9.4 mg/dL (8.5-10.1); Chloride 106 mmol/L (98-107); Creatinine, Serum 0.72 mg/dL (0.55-1.02); EST Glomerular Filtration Rate 91 mL/min (>60); Est Glom Filt Rate - Afr Amer 110 mL/min (>60); Globulin 3.2 g/dL (2.2-4.2); Glucose 78 mg/dL (74-106); Potassium 3.6 mmol/L (3.5-5.1); Sodium Level 142 mmol/L (136-145)
[2022-12-19 10:46] LABS: Vitamin B12 1530 pg/mL (211-911)
[2022-12-21 17:07] LABS: Beef <0.10 kU/L (Class 0); Corn <0.10 kU/L (Class 0); Egg, Whole <0.10 kU/L (Class 0); Milk (Cow) <0.10 kU/L (Class 0); Peanut <0.10 kU/L (Class 0); Pork <0.10 kU/L (Class 0); Soybean <0.10 kU/L (Class 0); Wheat <0.10 kU/L (Class 0)
[2022-12-21 21:20] LABS: Chocolate <0.10 kU/L (Class 0)
== END | disposition home or self-care (01) ==
LOC: MFPLAB 09:08
PROVIDERS: PCP Family Medicine; Visit Provider Nurse Practitioner Family
DX: R11.0 Nausea (principal); R53.83 Other fatigue
CPT/HCPCS: 36415; 80053; 82607; 86003; 86005; 86140

== ENCOUNTER → 2023-04-17 | Outpatient (CLI) | payer OTHER, SELFPAY ==
[2023-04-17 17:31] LABS: Absolute Lymphocyte Count 1.74 X10^3/uL (0.83-4.51); Absolute Neutrophil Count 3.5 X10^3/uL (2.0-7.7); Basophil# 0.05 X10^3/uL; Basophil% 0.9 % (0-1); Eosinophil# 0.05 X10^3/uL; Eosinophils% 0.9 % (0-5); Hematocrit 39.1 % (37-47); Hemoglobin 12.6 g/dL (12.0-15.0); Lymphocyte # 1.74 X10^3/ul (0.83-4.51); Lymphocyte % 29.7 % (19-41); Mean Corp Hgb Conc 32.2 g/dL (32-36); Mean Corpuscular Hgb 31.4 pg (27.0-32.0); Mean Corpuscular Volume 97.5 fL (81-99); Mean Platelet Vol. 11.1 fl (6.2-12.0); Monocyte# 0.48 X10^3/uL; Monocyte% 8.2 % (0-10); NRBC Flagged by Analyzer 0 % (0-5); Neutrophil # 3.52 X10^3/uL (2.7-7.7); Neutrophil % 60.1 % (47-70); Platelet Count 196 K/mm3 (150-450); RBC Distribution Width CV 14.8 % (11.6-14.6); RBC Distribution Width SD 53.6 fl (35.1-43.9); Red Blood Count 4.01 M/mm3 (4.2-5.4); White Blood Count 5.9 K/mm3 (4.4-11.0)
[2023-04-17 17:51] LABS: ALB/GLOB Ratio 1.3 RATIO (0.9-2.4); AST(SGOT) 35 U/L (15-37); Alanine Aminotransfer ALT/SGPT 45 U/L (13-56); Albumin, Serum 3.7 g/dL (3.2-5.0); Alkaline Phosphatase 72 U/L (45-117); Anion Gap 4 (5-15); BUN 20 mg/dL (7-18); BUN/Creat Ratio 31.6 RATIO (10-20); Calcium,Total 8.9 mg/dL (8.5-10.1); Chloride 108 mmol/L (98-107); Cholesterol 128 mg/dL (200); Creatinine, Serum 0.63 mg/dL (0.55-1.02); EST Glomerular Filtration Rate 105 mL/min (>60); Est Glom Filt Rate - Afr Amer 127 mL/min (>60); Globulin 2.9 g/dL (2.2-4.2); Glucose 80 mg/dL (74-106); High Density Lipoprotein 84 mg/dL; Potassium 4.1 mmol/L (3.5-5.1); Protein, Total 6.6 g/dL (6.4-8.2); Sodium Level 140 mmol/L (136-145); Triglycerides 48 mg/dL; Very Low Density Lipoprotein 10 mg/dL (5-40)
[2023-04-17 17:55] LABS: Vitamin B12 756 pg/mL (211-911)
== END | disposition home or self-care (01) ==
PROVIDERS: PCP Family Medicine; Referring Provider Nurse Practitioner Family; Visit Provider Nurse Practitioner Family
DX: E63.8 Other specified nutritional deficiencies (principal); Z13.1 Encounter for screening for diabetes mellitus; Z13.220 Encounter for screening for lipoid disorders
CPT/HCPCS: 36415; 80053; 80061; 82607; 85025

== ENCOUNTER → 2023-04-25 | Outpatient (CLI) | payer OTHER, SELFPAY ==
--- NOTE | 2023-04-25 10:01 | BI_ITS ---
MAMMOGRAPHY - BILATERAL SCREENING REASON FOR EXAM: Female, 53 years old. Routine annual screening examination. PERTINENT HISTORY: Non-contributory. TECHNIQUE: Digital bilateral breast lea (3D mammographic acquisition) in the CC and MLO projections. 2-D mediolateral oblique (MLO) and craniocaudad (CC) views of both breasts were obtained. CAD: Full Field Digital Mammography with Computer Added Detection was performed. COMPARISON: Comparison is made with prior study April 11, 2022 and April 09, 2021. FINDINGS: Breast Composition: There are scattered areas of fibroglandular density. There are no dominant masses or suspicious calcifications. Stable smaller right breast size. No other significant abnormalities are identified. There has been no significant change since the prior study. BI/SCRN MAMM (CAD)W/LEA BILAT IMPRESSION: Stable bilateral screening mammogram. Yearly follow-up mammogram recommended. (A) ASSESSMENT CATEGORY: BIRADS Category 1: Negative. A letter regarding these results will be sent to the patient by the facility within 30 days. Approximately 10% of breast cancers are not detected by mammography. A normal mammogram should not delay biopsy of a clinically suspicious abnormality. [id number] Electronically Signed: Mohsen Stallworth MD at 13:02 EDT ,
== END | disposition home or self-care (01) ==
LOC: OPBI 10:00
PROVIDERS: PCP Family Medicine; Referring Provider Nurse Practitioner Family; Visit Provider Nurse Practitioner Family
DX: Z12.31 Encounter for screening mammogram for malignant neoplasm of breast (principal)
CPT/HCPCS: 77063; 77067

== ENCOUNTER → 2024-04-26 | Outpatient (CLI) | payer OTHER, SELFPAY ==
[2024-04-26 10:44] LABS: Anion Gap 3 (5-15); BUN 14 mg/dL (7-18); BUN/Creat Ratio 18.7 RATIO (10-20); CRP < 2.90 mg/L (0.0-3.0); Calcium,Total 9.2 mg/dL (8.5-10.1); Chloride 107 mmol/L (98-107); Cholesterol 137 mg/dL (200); Creatinine, Serum 0.75 mg/dL (0.55-1.02); EST Glomerular Filtration Rate 87 mL/min (>60); Est Glom Filt Rate - Afr Amer 105 mL/min (>60); Glucose 86 mg/dL (74-106); High Density Lipoprotein 88 mg/dL; Potassium 3.8 mmol/L (3.5-5.1); Sodium Level 141 mmol/L (136-145); Thyroid Stim Hormone (TSH) 1.64 uIU/mL (0.358-3.74); Triglycerides 34 mg/dL; Very Low Density Lipoprotein 7 mg/dL (5-40)
== END | disposition home or self-care (01) ==
LOC: MFPLAB 08:09
PROVIDERS: PCP Family Medicine
DX: Z13.1 Encounter for screening for diabetes mellitus (principal); Z13.220 Encounter for screening for lipoid disorders; R63.4 Abnormal weight loss
CPT/HCPCS: 36415; 80048; 80061; 84443; 86140

== ENCOUNTER → 2024-07-17 | Outpatient (CLI) | payer OTHER, SELFPAY ==
--- NOTE | 2024-07-17 07:39 | BI_ITS ---
MAMMOGRAPHY - BILATERAL SCREENING 3-D TOMOSYNTHESIS REASON FOR EXAM: Female, 54 years old. SCREENING PERTINENT HISTORY: No significant family history. TECHNIQUE: 2-D mammograms and 3-D Tomosynthesis of the breast (s) were performed. CAD was performed. COMPARISON: 04/25/2023 FINDINGS: The breast composition is composed of scattered fibroglandular density. Scattered benign calcifications are seen. No dense spiculated masses or suspicious microcalcifications are identified. No architectural distortion is identified. There is no skin thickening or retraction. There has been no significant change since the prior study. BI/SCRN MAMM (CAD)W/LEA BILAT IMPRESSION: No mammographic signs of malignancy. Routine yearly mammograms recommended. ASSESSMENT CATEGORY: BIRADS Category 1: Negative. A letter regarding these results will be sent to the patient by the facility within 30 days. FOLLOW UP RECOMMENDATION: Yearly follow up mammogram recommended. (A) Approximately 10% of breast cancers are not detected by mammography. A normal mammogram should not delay biopsy of a clinically suspicious abnormality. Electronically Signed: Candido Hylton MD at 8:30 EDT ,
== END | disposition home or self-care (01) ==
LOC: OPBI 07:38
PROVIDERS: PCP Family Medicine; Referring Provider Family Medicine; Visit Provider Family Medicine
DX: Z12.31 Encounter for screening mammogram for malignant neoplasm of breast (principal)
CPT/HCPCS: 77063; 77067

== ENCOUNTER → 2024-09-12 | Outpatient (CLI) | payer OTHER, SELFPAY ==
--- NOTE | 2024-09-12 07:20 | US_ITS ---
INDICATION: PAIN/NAUSEA EXAMINATION: Ultrasound US Abdomen Limited (quadrant) TECHNIQUE: Escobar scale and color doppler imaging was performed of the right upper quadrant. COMPARISON: None. FINDINGS: LIVER: Normal echotexture. No evidence of a mass. No intrahepatic duct dilation. GALLBLADDER: Mildly distended. No evidence of a stone or sludge. Normal wall thickness. No pericholecystic fluid. Negative sonographic Catherine''s sign. COMMON BILE DUCT: Normal measuring 4 mm in diameter. PANCREAS: Visualized portions of the pancreas appear normal. RIGHT KIDNEY: Unremarkable. FREE FLUID: No free fluid in the right upper quadrant. US/Abdomen Limited IMPRESSION: Normal right upper quadrant ultrasound. Electronically Signed: Dylon Pereyra DO at 23:32 EST ,
== END | disposition home or self-care (01) ==
PROVIDERS: PCP Family Medicine; Referring Provider Internal Medicine Gastroenterology; Visit Provider Internal Medicine Gastroenterology
DX: R11.0 Nausea (principal); R10.9 Unspecified abdominal pain
CPT/HCPCS: 76705

== ENCOUNTER 2024-12-27 13:30 | Outpatient (RCR) | payer SELFPAY | END 2024-12-27 19:00 | disposition home or self-care (01) | LOC: PT 13:30 | PROVIDERS: PCP Family Medicine | DX: R51.9 Headache, unspecified (principal); M54.2 Cervicalgia; M25.519 Pain in unspecified shoulder ==